=== PATIENT | female | born 1970 ===

== ENCOUNTER 2024-09-18 08:22 | Day surgery (SDC) | payer OTHER ==
[2024-09-18] MEDS ORDERED: fentaNYL CITRATE 50 MCG/ML AMPUL IV ONE (13:45)
[2024-09-18] MEDS ORDERED: DIPHENHYDRAMINE HCL 50 MG/ML VIAL 1ML IV ONE (13:45)
[2024-09-18] MEDS ORDERED: MIDAZOLAM HCL 2 MG/2 ML VIAL IV ONE (13:45)
== END 2024-09-18 15:10 | disposition home or self-care (01) ==
LOC: AMB-ENDOS 08:22
PROVIDERS: ATTEND Surgery
DX: D12.5 Benign neoplasm of sigmoid colon (principal); D12.3 Benign neoplasm of transverse colon; K63.5 Polyp of colon; K57.30 Diverticulosis of large intestine without perforation or abscess without bleeding